=== PATIENT | male | born 1955 | race Caucasian/White ===

== ENCOUNTER → 2018-10-06 07:39 | Outpatient (CLI) | payer MEDICARE, MEDICAID | END | disposition home or self-care (01) | LOC: D.RAD 07:39 | DX: R13.10 Dysphagia, unspecified (principal) ==

== ENCOUNTER → 2018-11-15 17:04 | Outpatient (CLI) | payer MEDICARE, MEDICAID | END | disposition home or self-care (01) | LOC: D.LABREF 17:04 | DX: M19.012 Primary osteoarthritis, left shoulder (principal); Z11.8 Encounter for screening for other infectious and parasitic diseases ==

== ENCOUNTER 2018-11-28 17:02 | Inpatient (IN) | payer MEDICARE ==
[~2018-11-28] VITALS: Ht 180.3 cm; Wt 84.4 kg
[2018-12-08] MEDS ORDERED: AMITRIPTYLINE H50 MG PO (12:45)
[2018-12-08] MEDS ORDERED: NORVASC10 MG PO (12:46)
[2018-12-08] MEDS ORDERED: LIPITOR40 MG PO (12:47)
[2018-12-08] MEDS ORDERED: TENORMIN25 MG PO (12:47)
[2018-12-08] MEDS ORDERED: PLAVIX75 MG PO (12:48)
[2018-12-08] MEDS ORDERED: CELEXA40 MG PO (12:48)
[2018-12-08] MEDS ORDERED: ZYBAN150 MG PO (12:48)
[2018-12-08] MEDS ORDERED: CYCLOBENZAPRINE5 MG PO (12:49)
[2018-12-08] MEDS ORDERED: FENOFIBRATE160 MG PO (12:49)
[2018-12-08] MEDS ORDERED: HYDROCODON-ACE1 EA10 PO (12:50)
[2018-12-08] MEDS ORDERED: DURAGESIC1 PATCH .1 TRANSDERM (12:50)
[2018-12-08] MEDS ORDERED: GLIMEPIRIDE4 MG PO (12:50)
[2018-12-08] MEDS ORDERED: ISOSORBIDE DINI30 MG PO (12:51)
[2018-12-08] MEDS ORDERED: LISINOPRIL40 MG PO (12:52)
[2018-12-08] MEDS ORDERED: LEVEMIR FL100 UNIT/1 SC (12:52)
[2018-12-08] MEDS ORDERED: GLUCOPHAGE1000 MG PO (12:52)
[2018-12-08] MEDS ORDERED: LYRICA75 MG PO (12:52)
[2018-12-08] MEDS ORDERED: NOVOLOG100 UNIT/1 SC (12:53)
[2018-12-08] MEDS ORDERED: NITROQUICK0.4 MG SL (12:53)
[2018-12-08] MEDS ORDERED: OXYCONTIN10 MG PO (12:54)
[2018-12-08] MEDS ORDERED: RANEXA1000 MG PO (12:54)
[2018-12-08] MEDS ORDERED: BACTRIM 400-801 TAB PO (12:55)
[2018-12-08] MEDS ORDERED: VENTOLIN IH (12:57)
[2018-12-08] MEDS ORDERED: VICTOZA0.6 MG/0.1 SQ (12:57)
[2018-12-08] MEDS ORDERED: XARELTO20 MG PO (12:57)
[2018-12-08 14:20] LABS: BASOPHILS 0.3 % (0-2); EOSINOPHILS 2.7 % (0-7); HEMATOCRIT 40.9 % (42.0-54.0); HEMOGLOBIN 14.2 g/dL (13.5-17.5); IMMATURE GRANULOCYTES 0.5 % (0-5); LYMPHOCYTES 32.1 % (15-50); MCH 32.1 pg (26.0-34.0); MCHC 34.7 g/dL (31.0-37.0); MCV 92.5 fL (80.0-100.0); MEAN PLATELET VOLUME 10.3 fL (7.4-10.4); MONOCYTES 6.9 % (2-11); NEUTROPHILS 57.5 % (40-80); PLATELET COUNT 241 10x3/uL (130-400); RBC 4.42 10x6/uL (4.20-6.10); RDW 13.6 % (11.5-14.5); WBC 11.6 10x3/uL (4.8-10.8)
[2018-12-08 14:37] LABS: ANION GAP 14.1 mmol/L (8-16); CARBON DIOXIDE 25.7 mmol/L (21.0-32.0); CREATININE - SERUM 1.2 mg/dL (0.6-1.3); POTASSIUM - SERUM 4.8 mmol/L (3.5-5.1)
[2018-12-08 14:38] LABS: INR 1.26 (0.85-1.17); PROTIME 15.3 SECONDS (11.6-15.0)
[2018-12-08 14:39] LABS: APTT 33.6 SECONDS (22.8-39.4)
[2018-12-08 15:21] LABS: APPEARANCE CLEAR (CLEAR); BILIRUBIN NEGATIVE (NEGATIVE); COLOR YELLOW (YELLOW); GLUCOSE 250 mg/dL (NEGATIVE); KETONE NEGATIVE (NEGATIVE); NITRITE NEGATIVE (NEGATIVE); PROTEIN TRACE mg/dL (NEGATIVE); UROBILINOGEN NORMAL (NORMAL)
[2018-12-08 15:22] LABS: AMORPHOUS SEDIMENT <1+ /lpf (NONE SEEN); EPITHELIAL CELLS 0-5 /hpf (0-5); RED CELLS - URINE 0-5 /hpf (0-5); WHITE CELLS - URINE 0-5 /hpf (0-5)
[2018-12-12 11:12] VITALS: BP 126/80; BMI 26.0
[2018-12-12 16:29] VITALS: BP 98/51
[2018-12-12 16:44] VITALS: BP 98/51; BMI 26.0
--- NOTE | 2018-12-12 16:57 | NUR ---
PT RECIEVED FROM PACU PER STRETCHER. DRESSING NOTED TO RIGHT SHOULDER CLEAN DRY AND INTACT WITH SLING IN PLACE. STATES RIGHT SHOULDER IS NUMB. IV IN LEFT HAND AND IS POSITIONAL. SCDS ON IN PLACE. CALL LIGHT IN REACH
[2018-12-12 17:00] VITALS: BP 107/54
--- NOTE | 2018-12-12 17:30 | NUR ---
PATIENT ASKED ABOUT HOME INSULIN. NOTIFIED AND NEW ORDERS RECEIVED.
--- NOTE | 2018-12-12 19:29 | NUR ---
ATE ALL OF SUPPER. NO CHANGES NOTED. DENIES NEEDS. NO C/O PAIN AT THIS TIME.
--- NOTE | 2018-12-12 20:15 | NUR ---
AWAKE,ALERT.WATCHING TV QUIELTY. NO COMPLAITNS.DRSG TO RIGHT SHOULDER CLEAN/DRY/INTACT. SLING IN PLACE TO RIGHT ARM. IV INFUSING TO LEFT WRIST INTACT WITHOUT REDNESS OR EDEMA NOTED. CL IN REACH
[2018-12-12 21:24] VITALS: BP 105/51
--- NOTE | 2018-12-13 01:36 | NUR ---
EYES CLOSED RESPIRATIONS WITH EASE AND UNLABORED. DRESSING TO RT SHOULDER C/D/I SLING IN PLACE,
[2018-12-13 01:38] VITALS: BP 85/41
[2018-12-13 05:03] VITALS: BP 106/40
[2018-12-13 06:47] LABS: HEMATOCRIT 32.9 % (42.0-54.0); MCH 31.4 pg (26.0-34.0); MCHC 33.4 g/dL (31.0-37.0); MEAN PLATELET VOLUME 10.3 fL (7.4-10.4); RBC 3.5 10x6/uL (4.20-6.10); RDW 13.8 % (11.5-14.5); WBC 9.5 10x3/uL (4.8-10.8)
--- NOTE | 2018-12-13 07:58 | NUR ---
PT AAOX4 RESP EVEN AND NONLABORED, NO SIGNS OF DISTRESS NOTED, PT REQUESTING SOMETHING FOR PAIN, I EXPRESSED TO PT "THAT HE HAD SOMETHING AT 0433 AND AT 0633, AND THAT HE COULD NOT HAVE ANYTHING ELSE UNTIL AT LEAST 0833" PT WAS NOT HAPPY, CL IN REACH
[2018-12-13 08:51] VITALS: BP 168/62
[2018-12-13 10:28] VITALS: Ht 180.3 cm; Wt 84.4 kg
[2018-12-13 13:39] VITALS: BP 133/41
[2018-12-13 15:45] VITALS: BP 136/50
--- NOTE | 2018-12-13 18:29 | NUR ---
DENTAL MOLD MAKER COMPLETE. NO SIGNS OF DISTRESS. DENIES NEEDS AT THIS TIME. CL IN REACH
[2018-12-13 21:02] VITALS: BP 141/52
[2018-12-14 04:49] LABS: HEMATOCRIT 33.2 % (42.0-54.0); HEMOGLOBIN 11.3 g/dL (13.5-17.5); MCH 31.7 pg (26.0-34.0); MEAN PLATELET VOLUME 10.3 fL (7.4-10.4); RBC 3.57 10x6/uL (4.20-6.10); RDW 13.7 % (11.5-14.5)
--- NOTE | 2018-12-14 05:00 | NUR ---
EYES CLOSED RESPIRATIONS WITH EASE AND UNLABORED.
[2018-12-14 06:05] VITALS: BP 168/72
[2018-12-14 08:17] VITALS: BP 133/67
--- NOTE | 2018-12-14 08:31 | NUR ---
PT ALERT X 4. BREATH SOUNDS CLEAR BILAT. IV TO LEFT FOREARM DC'D, TIP INTACT. PT REPORTING PAIN OF 10/10, MEDICATED PER ORDERS, WILL MONITOR. SCD'S ON. BREAKFAST IN ROOM. BED LOW, CALL LIT IN REACH. NO OTHER NEEDS AT THIS TIME.
[2018-12-14] MEDS ORDERED: OXYCONTIN10 MG PO (08:48)
[2018-12-14] MEDS ORDERED: DILAUDID4 MG PO (08:50)
--- NOTE | 2018-12-14 11:02 | MORECARE ---
CASE MANAGEMENT DISCHARGE SUMMARY PATIENT: YAJAIRA RAHMAN UNIT: [id number] ADM DATE: 12/12/18 AGE: 63 : 54 SEX: M ROOM/BED: D.2203 AUTHOR: EMPERATRIZ GIORDANO PHYSICIAN: REFERRING PHYSICIAN: CLEMENCIA HERRING MD DATE OF SERVICE: 12/14/18 Discharge Plan Patient Name: YAJAIRA RAHMAN Facility: [facility]:[place] : 1955 Planned Disposition: Home Health Service Anticipated Discharge Date: Discharge Date: Expected LOS: Initial Reviewer: [email or web address] Initial Review Date: 12/12/2018 Generated: 12/14/18 12:02 pm DCPIA - Discharge Planning Initial Assessment Updated by [email or web address]: Jolene Smallwood on 12/14/18 10:57 am * Is the patient Alert and Oriented? Yes * How many steps to enter\exit or inside your home? RAMP * PCP [facility] * [facility] * Preadmission Environment Home Alone * ADLs Independent * Equipment Other Power Chair or Electric Scooter Shower Chair * Other Equipment TRANSFER CHAIR * List name and contact numbers for known caregivers / representatives who currently or will assist patient after discharge: BEBE BARRON (SISTER) [phone] * Verbal permission to speak to the caregivers and representatives has been obtained from the patient. N/A * Community resources currently utilized None * Additional services required to return to the preadmission environment? Yes * Can the patient safely return to the preadmission environment? No * Has this patient been hospitalized within the prior 30 days at any hospital? No External Providers External Provider: [facility] Next Contact Date: Service Request Date: Service Type: Resolution: Reviewer: Comments: Patient Name: YAJAIRA RAHMAN Page 13382 at 1102 All edits/amendments must be made on the electronic document DICTATION DATE: 12/14/18 1101 MACHINE SCALLOP CUTTER: ANANYA 12/14/18 1101 RPT#: [id number] DC DATE: STATUS: ADM IN [facility] [address] [place] [address] END OF REPORT
--- NOTE | 2018-12-14 11:09 | MORECARE ---
CASE MANAGEMENT DISCHARGE SUMMARY PATIENT: YAJAIRA RAHMAN UNIT: [id number] ADM DATE: 12/12/18 AGE: 63 : 54 SEX: M ROOM/BED: D.2203 AUTHOR: PASQUALE,DOC PHYSICIAN: REFERRING PHYSICIAN: CLEMENCIA HERRING MD DATE OF SERVICE: 12/14/18 Discharge Plan Patient Name: YAJAIRA RAHMAN Facility: [facility]:[place] : 1955 Planned Disposition: Home Health Service Anticipated Discharge Date: Discharge Date: Expected LOS: Initial Reviewer: [email or web address] Initial Review Date: 12/12/2018 Generated: 12/14/18 12:09 pm Comments DCP- Discharge Planning Updated by [email or web address]: Jolene Smallwood on 12/14/18 10:[address] Patient Name: YAJAIRA RAHMAN Admission Status: Elective Accout number: [id number] Admission Date: 12-12-2018 : 1955 Admission Diagnosis: Attending: CLEMENCIA HERRING Current LOS: 2 Anticipated DC Date: Planned Disposition: Home Health Service Primary Insurance: MEDICARE A & B Discharge Planning Comments: CM met with patient to complete initial dc planning assessment. CM educated patient on the CM role and verbal consent given by patient to complete assessment. Patient lives alone is [place] and states that he is independent with his care. At discharge patient plans to return home and feels this is a safe discharge. I questioned his safety at home by himself and he said that he does not care he is not staying here. I asked him how he gets around [facility], he stated that he calls [employer] bus but needs 5 days in advance notice. He has an electric wheelchair, shower chair and transfer board at home. CM discussed availability of home health, rehab services, and medical equipment. I questioned him about skilled and in patient rehab and he refuses to go to either. He stated that he has had [place] choices in the past, but moved out of [facility] and when he moved back he can not seem to be approved again. I gave information about [facility] and he would like to speak with them, I called and faxed a facesheet to [facility] and they will follow up with him at home. I spoke with Ramez. I explained to him about home health and CLAUDIA with [facility]. I will send a referral to them. I asked him to see if he had food in his home, he stated that he has stuff he can microwave. I again voiced my concerns about him going home alone and he stated that he was not staying here or going to a prison, and he was going home. CM will continue to follow and will assist as needed with dc plans/needs. Asbestos Removal Worker: Jolene Smallwood DCPIA - Discharge Planning Initial Assessment Updated by [email or web address]: Jolene Smallwood on 12/14/18 10:57 am * Is the patient Alert and Oriented? Yes * How many steps to enter\exit or inside your home? RAMP * PCP [facility] * [facility] * Preadmission Environment Home Alone * ADLs Independent * Equipment Other Power Chair or Electric Scooter Shower Chair * Other Equipment TRANSFER CHAIR * List name and contact numbers for known caregivers / representatives who currently or will assist patient after discharge: BEBE BARRON (SISTER) [phone] * Verbal permission to speak to the caregivers and representatives has been obtained from the patient. N/A * Community resources currently utilized None * Additional services required to return to the preadmission environment? Yes * Can the patient safely return to the preadmission environment? No * Has this patient been hospitalized within the prior 30 days at any hospital? No Last DP export: 12/14/18 10:02 a Patient Name: YAJAIRA RAHMAN Page [id number] at 1109 All edits/amendments must be made on the electronic document DICTATION DATE: 12/14/181107 CORPORATE PLANNING MANAGER: ANANYA 12/14/181107 RPT#: [id number] DC DATE: STATUS: ADM IN [facility] [address] [place] [address] END OF REPORT
--- NOTE | 2018-12-14 11:17 | MORECARE ---
CASE MANAGEMENT DISCHARGE SUMMARY PATIENT: YAJAIRA RAHMAN UNIT: [id number] ADM DATE: 12/12/18 AGE: 63 : 54 SEX: M ROOM/BED: D.2203 AUTHOR: PASQUALE,DOC PHYSICIAN: REFERRING PHYSICIAN: CLEMENCIA HERRING MD DATE OF SERVICE: 12/14/18 Discharge Plan Patient Name: YAJAIRA RAHMAN Facility: [facility]:[place] : 1955 Planned Disposition: Home Health Service Anticipated Discharge Date: Discharge Date: Expected LOS: Initial Reviewer: [email or web address] Initial Review Date: 12/12/2018 Generated: 12/14/18 12:16 pm Comments DCP- Discharge Planning Updated by [email or web address]: Jolene Smallwood on 12/14/18 10:[address] Patient Name: YAJAIRA RAHMAN Admission Status: Elective Accout number: [id number] Admission Date: 12-12-2018 : 1955 Admission Diagnosis: Attending: CLEMENCIA HERRING Current LOS: 2 Anticipated DC Date: Planned Disposition: Home Health Service Primary Insurance: MEDICARE A & B Discharge Planning Comments: CM met with patient to complete initial dc planning assessment. CM educated patient on the CM role and verbal consent given by patient to complete assessment. Patient lives alone is [place] and states that he is independent with his care. At discharge patient plans to return home and feels this is a safe discharge. I questioned his safety at home by himself and he said that he does not care he is not staying here. I asked him how he gets around [facility], he stated that he calls [employer] bus but needs 5 days in advance notice. He has an electric wheelchair, shower chair and transfer board at home. CM discussed availability of home health, rehab services, and medical equipment. I questioned him about skilled and in patient rehab and he refuses to go to either. He stated that he has had [place] choices in the past, but [facility] and when he moved back he can not seem to be approved again. I gave information about [facility] and he would like to speak with them, I called and faxed a facesheet to [facility] and they will follow up with him at home. I spoke with Ramez. I explained to him about home health and CLAUDIA with [facility]. I will send a referral to them. I asked him to see if he had food in his home, he stated that he has stuff he can microwave. I again voiced my concerns about him going home alone and he stated that he was not staying here or going to a [place] [facility], and he was going home. CM will continue to follow and will assist as needed with dc plans/needs. Hotel Assistant General Manager: Jolene Smallwood DCPIA - Discharge Planning Initial Assessment Updated by [email or web address]: Jolene Smallwood on 12/14/18 10:57 am * Is the patient Alert and Oriented? Yes * How many steps to enter\exit or inside your home? RAMP * PCP [facility] * [facility] * Preadmission Environment Home Alone * ADLs Independent * Equipment Other Power Chair or Electric Scooter Shower Chair * Other Equipment TRANSFER CHAIR * List name and contact numbers for known caregivers / representatives who currently or will assist patient after discharge: BEBE BARRON (SISTER) [phone] * Verbal permission to speak to the caregivers and representatives has been obtained from the patient. N/A * Community resources currently utilized None * Additional services required to return to the preadmission environment? Yes * Can the patient safely return to the preadmission environment? No * Has this patient been hospitalized within the prior 30 days at any hospital? No External Providers External Provider: [facility] Next Contact Date: Service Request Date: Service Type: Resolution: Reviewer: Comments: Last DP export: 12/14/18 10:09 a Patient Name: YAJAIRA RAHMAN Page [phone] at 1117 All edits/amendments must be made on the electronic document DICTATION DATE: 12/14/18 1116 MELT HOUSE CENTRIFUGAL OPERATOR: ANANYA 12/14/18 1116 RPT#: [id number] DC DATE: STATUS: ADM IN [facility] [address] [place] [address] END OF REPORT
--- NOTE | 2018-12-14 11:23 | MORECARE ---
CASE MANAGEMENT DISCHARGE SUMMARY PATIENT: YAJAIRA RAHMAN UNIT: [id number] ADM DATE: 12/12/18 AGE: 63 : 53 SEX: M ROOM/BED: D.2203 AUTHOR: EMPERATRIZ GIORDANO PHYSICIAN: REFERRING PHYSICIAN: CLEMENCIA HERRING MD DATE OF SERVICE: 12/14/18 Discharge Plan Patient Name: YAJAIRA RAHMAN Facility: [facility]:[place] : 1955 Planned Disposition: Home Health Service Anticipated Discharge Date: Discharge Date: Expected LOS: Initial Reviewer: [email or web address] Initial Review Date: 12/12/2018 Generated: 12/14/18 12:23 pm Comments DCP- Discharge Planning Updated by [email or web address]: Jolene Smallwood on 12/14/18 10:[address] called and left message with clemencia at [employer] to set up transportation DCP- Discharge Planning Updated by [email or web address]: Jolene Smallwood on 12/14/18 10:[address] Patient Name: YAJAIRA RAHMAN Admission Status: Elective Accout number: [id number] Admission Date: 12-12-2018 : 1955 Admission Diagnosis: Attending: CLEMENCIA HERRING Current LOS: 2 Anticipated DC Date: Planned Disposition: Home Health Service Primary Insurance: MEDICARE A & B Discharge Planning Comments: CM met with patient to complete initial dc planning assessment. CM educated patient on the CM role and verbal consent given by patient to complete assessment. Patient lives alone is [place] and states that he is independent with his care. At discharge patient plans to return home and feels this is a safe discharge. I questioned his safety at home by himself and he said that he does not care he is not staying here. I asked him how he gets around town, he stated that he calls [employer] bus but needs 5 days in advance notice. He has an electric wheelchair, shower chair and transfer board at home. CM discussed availability of home health, rehab services, and medical equipment. I questioned him about skilled and in patient rehab and he refuses to go to either. He stated that he has had [place] choices in the past, but moved out of [facility] and when he moved back he can not seem to be approved again. I gave information about [facility] and he would like to speak with them, I called and faxed a facesheet to [facility] and they will follow up with him at home. I spoke with Ramez. I explained to him about home health and CLAUDIA with [facility]. I will send a referral to them. I asked him to see if he had food in his home, he stated that he has stuff he can microwave. I again voiced my concerns about him going home alone and he stated that he was not staying here or going to a shelter, and he was going home. CM will continue to follow and will assist as needed with dc plans/needs. Palm And Back Forger: Jolene Smallwood DCPIA - Discharge Planning Initial Assessment Updated by [email or web address]: Jolene Smallwood on 12/14/18 10:57 am * Is the patient Alert and Oriented? Yes * How many steps to enter\exit or inside your home? RAMP * PCP [facility] * [facility] * Preadmission Environment Home Alone * ADLs Independent * Equipment Other Power Chair or Electric Scooter Shower Chair * Other Equipment TRANSFER CHAIR * List name and contact numbers for known caregivers / representatives who currently or will assist patient after discharge: BEBE BARRON (SISTER) [phone] * Verbal permission to speak to the caregivers and representatives has been obtained from the patient. N/A * Community resources currently utilized None * Additional services required to return to the preadmission environment? Yes * Can the patient safely return to the preadmission environment? No * Has this patient been hospitalized within the prior 30 days at any hospital? No Last DP export: 12/14/18 10:17 a Patient Name: YAJAIRA RAHMAN Page 21329 at 1123 All edits/amendments must be made on the electronic document DICTATION DATE: 12/14/181122 GLASS BULB MACHINE ADJUSTER: ANANYA 12/14/181122 RPT#: [id number] DC DATE: STATUS: ADM IN [facility] [address] [place] [address] END OF REPORT
[2018-12-14 12:39] VITALS: BP 125/55
--- NOTE | 2018-12-14 15:07 | MORECARE ---
CASE MANAGEMENT DISCHARGE SUMMARY PATIENT: YAJAIRA RAHMAN UNIT: [id number] ADM DATE: 12/12/18 AGE: 63 : 53 SEX: M ROOM/BED: D.2203 AUTHOR: PASQUALE,DOC PHYSICIAN: REFERRING PHYSICIAN: ISADORA HERRING MD DATE OF SERVICE: 12/14/18 Discharge Plan Patient Name: YAJAIRA RAHMAN Facility: [facility]:[place] : 1955 Planned Disposition: Home Health Service Anticipated Discharge Date: Discharge Date: Expected LOS: Initial Reviewer: [email or web address] Initial Review Date: 12/12/2018 Generated: 12/14/18 4:07 pm Comments DCP- Discharge Planning Updated by [email or web address]: Jolene Smallwood on 12/14/18 2:[address] Isadora WITH [email or web address] WILL BE TRANSPORTING PATIENT HOME, [facility] WILL BE PAYING FOR THE TRANSPORT SPOKE WITH [employer] AND $35.00 WAS GIVEN TO ME TO PAY FOR TRANSPORTATION DCP- Discharge Planning Updated by [email or web address]: Jolene Smallwood on 12/14/18 10:[address] called and left message with isadora at [employer] to set up transportation DCP- Discharge Planning Updated by [email or web address]: Jolene Smallwood on 12/14/18 10:[address] Patient Name: YAJAIRA RAHMAN Admission Status: Elective Accout number: [id number] Admission Date: 12-12-2018 : 1955 Admission Diagnosis: Attending: ISADORA HERRING Current LOS: 2 Anticipated DC Date: Planned Disposition: Home Health Service Primary Insurance: MEDICARE A & B Discharge Planning Comments: CM met with patient to complete initial dc planning assessment. CM educated patient on the CM role and verbal consent given by patient to complete assessment. Patient lives alone is [place] and states that he is independent with his care. At discharge patient plans to return home and feels this is a safe discharge. I questioned his safety at home by himself and he said that he does not care he is not staying here. I asked him how he gets around town, he stated that he calls [employer] bus but needs 5 days in advance notice. He has an electric wheelchair, shower chair and transfer board at home. CM discussed availability of home health, rehab services, and medical equipment. I questioned him about skilled and in patient rehab and he refuses to go to either. He stated that he has had [place] choices in the past, but moved out of [facility] and when he moved back he can not seem to be approved again. I gave information about [facility] and he would like to speak with them, I called and faxed a facesheet to [facility] and they will follow up with him at home. I spoke with Ramez. I explained to him about home health and CLAUDIA with [facility]. I will send a referral to them. I asked him to see if he had food in his home, he stated that he has stuff he can microwave. I again voiced my concerns about him going home alone and he stated that he was not staying here or going to a [facility], and he was going home. CM will continue to follow and will assist as needed with dc plans/needs. Radiation Oncology Nurse: Jolene Smallwood DCPIA - Discharge Planning Initial Assessment Updated by [email or web address]: Jolene Smallwood on 12/14/18 10:57 am * Is the patient Alert and Oriented? Yes * How many steps to enter\exit or inside your home? RAMP * PCP [facility] * [facility] * Preadmission Environment Home Alone * ADLs Independent * Equipment Other Power Chair or Electric Scooter Shower Chair * Other Equipment TRANSFER CHAIR * List name and contact numbers for known caregivers / representatives who currently or will assist patient after discharge: BEBE BARRON (SISTER) [phone] * Verbal permission to speak to the caregivers and representatives has been obtained from the patient. N/A * Community resources currently utilized None * Additional services required to return to the preadmission environment? Yes * Can the patient safely return to the preadmission environment? No * Has this patient been hospitalized within the prior 30 days at any hospital? No Last DP export: 12/14/18 10:23 a Patient Name: YAJAIRA RAHMAN Page [id number] at 1502 All edits/amendments must be made on the electronic document DICTATION DATE: 12/14/181505 GREENHOUSE TECHNICIAN: ANANYA 12/14/181505 RPT#: [id number] DC DATE: STATUS: ADM IN [facility] [address] [place] [address] END OF REPORT
--- NOTE | 2018-12-14 15:32 | NUR ---
DISCHARGE PAPERWORK SIGNED, ALL QUESTIONS ANSWERED. PHYSICAL THERAPY ASSISTED WITH TRANSFER TO PERSONAL WHEELCHAIR. ESCORTED OUT BY [employer].
--- NOTE | 2018-12-14 17:18 | MORECARE ---
CASE MANAGEMENT DISCHARGE SUMMARY PATIENT: YAJAIRA RAHMAN UNIT: [id number] ADM DATE: 12/12/18 AGE: 63 : 53 SEX: M ROOM/BED: D.2203 AUTHOR: PASQUALE,DOC PHYSICIAN: REFERRING PHYSICIAN: ISADORA HERRING MD DATE OF SERVICE: 12/14/18 Discharge Plan Patient Name: YAJAIRA RAHMAN Facility: [facility]:[place] : 1955 Planned Disposition: Home Health Service Anticipated Discharge Date: Discharge Date: 12/14/2018 Expected LOS: 0 Initial Reviewer: [email or web address] Initial Review Date: 12/12/2018 Generated: 12/14/18 6:18 pm Comments DCP- Discharge Planning Updated by [email or web address]: Jolene Smallwood on 12/14/18 2:[address] Isadora WITH [employer] WILL BE TRANSPORTING PATIENT HOME, [facility] WILL BE PAYING FOR THE TRANSPORT SPOKE WITH [employer] AND $35.00 WAS GIVEN TO ME TO PAY FOR TRANSPORTATION DCP- Discharge Planning Updated by [email or web address]: Jolene Smallwood on 12/14/18 10:[address] called and left message with isadora at [email or web address] to set up transportation DCP- Discharge Planning Updated by [email or web address]: Jolene Smallwood on 12/14/18 10:[address] Patient Name: YAJAIRA RAHMAN Admission Status: Elective Accout number: [id number] Admission Date: 12-12-2018 : 1955 Admission Diagnosis: Attending: ISADORA HERRING Current LOS: 2 Anticipated DC Date: Planned Disposition: Home Health Service Primary Insurance: MEDICARE A & B Discharge Planning Comments: CM met with patient to complete initial dc planning assessment. CM educated patient on the CM role and verbal consent given by patient to complete assessment. Patient lives alone is [place] and states that he is independent with his care. At discharge patient plans to return home and feels this is a safe discharge. I questioned his safety at home by himself and he said that he does not care he is not staying here. I asked him how he gets around town, he stated that he calls [employer] but needs 5 days in advance notice. He has an electric wheelchair, shower chair and transfer board at home. CM discussed availability of home health, rehab services, and medical equipment. I questioned him about skilled and in patient rehab and he refuses to go to either. He stated that he has had [place] choices in the past, but moved out of [facility] and when he moved back he can not seem to be approved again. I gave information about [facility] and he would like to speak with them, I called and faxed a facesheet to [facility] and they will follow up with him at home. I spoke with R[facility]. I explained to him about home health and CLAUDIA with [facility]. I will send a referral to them. I asked him to see if he had food in his home, he stated that he has stuff he can microwave. I again voiced my concerns about him going home alone and he stated that he was not staying here or going to a [place] [facility] facility, and he was going home. CM will continue to follow and will assist as needed with dc plans/needs. [employer] Caser: Jolene Smallwood DCPIA - Discharge Planning Initial Assessment Updated by [email or web address]: Jolene Smallwood on 12/14/18 10:57 am * Is the patient Alert and Oriented? Yes * How many steps to enter\exit or inside your home? RAMP * PCP [facility] * Pharmacy [facility] * Preadmission Environment Home Alone * ADLs Independent * Equipment Other Power Chair or Electric Scooter Shower Chair * Other Equipment TRANSFER CHAIR * List name and contact numbers for known caregivers / representatives who currently or will assist patient after discharge: BEBE BARRON (SISTER) [phone] * Verbal permission to speak to the caregivers and representatives has been obtained from the patient. N/A * Community resources currently utilized None * Additional services required to return to the preadmission environment? Yes * Can the patient safely return to the preadmission environment? No * Has this patient been hospitalized within the prior 30 days at any hospital? No Last DP export: 12/14/18 2:07 p Patient Name: YAJAIRA RAHMAN Page [id number] at [id number] All edits/amendments must be made on the electronic document DICTATION DATE: 12/14/181717 BUILDING RENTAL SUPERINTENDENT: ANANYA 12/14/181717 RPT#: [id number] DC DATE:12/14/18 STATUS: DIS IN [facility] [address] [place] [address] END OF REPORT
--- NOTE | 2018-12-15 11:47 | OP ---
PATIENT NAME: YAJAIRA RAHMAN MEDICAL RECORD: [id number] :53 LOCATION:D.MS [id number] ADMISSION DATE:12/12/18 SURGEON: CLEMENCIA HERRING MD DATE OF OPERATION: 12/12/2018 PREOPERATIVE DIAGNOSIS: Painful hemiarthroplasty with chronic rotator cuff tear arthropathy of the right shoulder. POSTOPERATIVE DIAGNOSIS: Painful hemiarthroplasty with chronic rotator cuff tear arthropathy of the right shoulder. PROCEDURE: Revision of hemiarthroplasty to reverse total shoulder arthroplasty. SURGEON: Clemencia Herring MD BULB PACKER: Kenny ANESTHESIA: General. INTRAOPERATIVE COMPLICATIONS: None. SUMMARY OF PATHOLOGIC FINDINGS: The patient unfortunately had a very well fixed trabecular metal Micheal hemiarthroplasty with anterior escape as well as chronic rotator cuff arthropathy and erosion of the undersurface of the acromion. The stem required extended corticotomy for removal and that was cabled nicely, and revision from hemiarthroplasty to reverse total shoulder was without significant difficulty. IMPLANTS USED: Arthrex Univers system with size 8 stem, 135 x 36 metaphyseal component, 36 inferior two offset glenosphere, and a 24 mm +2 lateralized baseplate. Please note there were also three 1.7 Dall-Miles cables used to close down the extended humeral corticotomy. OPERATIVE SUMMARY IN DETAIL: After obtaining the appropriate preoperative orthopedic surgery consent as well as anesthetic consultation, evaluation, and clearance, the patient was brought to the operating room and placed on the operating table in the supine position. After adequate general laryngeal mask airway was administered, the patient was placed in the beachchair position. All pressure points were well padded. He was held firmly to the operating table using the vacuum pack suction system. Right upper extremity and shoulder were then prepped and draped in routine sterile fashion. Arm was held in the Arthrex Trimano device. Deltopectoral incision was taken gently down to the deltopectoral interval. Cephalic vein was not identified as it was likely disrupted from previous operation. Clavipectoral fascia was identified and portions of adhesed deltoid were taken down off the capsule. Noted was the rotator cuff arthropathy of the supraspinatus tendon tearing. Subscapularis was taken down, and after gentle dissection, the hemiarthroplasty was dissected forth. Very little degree of difficulty was required to take the humeral head off the Partida taper. However, at this point, serial and sequential flexible osteotome manipulation about the trunnion was utilized. When it was felt that there was little hope of getting this out without corticotomy, gentle corticotomy was performed for approximately 10 cm. It required only approximately 3-4 mm opening to further loosen the stem and remove it without substantial bone loss. Three Dall-Miles cables were then placed and tensioned with a temporary tension holding device while a reverse total shoulder was OPERATIVE REPORT [id number] YAJAIRA RAHMAN undertaken. Serial and sequential reaming were done for a size 8 press fit stem from the Univers system. Having completed this, the 8 trial was left in place with the humeral cut protector. The glenoid was exposed in its entirety. Circumferential labrectomy was then followed by placing the central pin. The appropriate reaming was done for a size 36. The 36 with a 25-mm screw was tapped and prepared for. This baseplate was then seated nicely with 4 peripheral screws with good fixation. The 36 glenosphere was then tamped into place on the Partida taper with the central screw then placed for good fixation. Attention was then returned to the proximal humerus. A size #8 stem with 36 metaphyseal component set at 135 was assembled on the back field and put into place with excellent position. Having completed this, further tensioning of the Dall-Miles cables was followed by crimping and cutting the wires. The shoulder was taken through reduction. It was felt that the 3 poly was most appropriate. This was stamped into place, reduced, taken through range of motion, and found to be stable in all planes without liftoff. Wound was copiously irrigated and then the deltopectoral interval was closed with #1 Vicryl followed by 2-0 Vicryl and skin ninoska. Sterile dressings were applied. The patient was awakened and taken to the recovery room in stable condition. All final needle and sponge counts were correct. TRANSINT:[id number] Voice Confirmation ID: [id number] DOCUMENT ID: [id number] NIMA FANG, CLEMENCIA YING at 1147 CC: [id number] DICTATION DATE: 12/12/18 1534 CLAM BED LABORER: 12/12/18 1842 DIS IN 12/14/18 [facility] [address] [place] [address]
== END 2018-12-14 15:33 | disposition home health service (06) | DRG 483 ==
LOC: D.SDCHOLD 12-12 10:20 → D.MS 12-12 10:20 → D.SDCHOLD 12-12 12:00 → D.MS 12-12 15:50
PROVIDERS: Anesthesiology; ADMIT Orthopaedic Surgery
PROC: 0RRJ00Z Replacement of Right Shoulder Joint with Reverse Ball and Socket Synthetic Substitute, Open Approach (ICD-10-PCS; principal; 2018-12-12 12:00)
DX: T84.84XA Pain due to internal orthopedic prosthetic devices, implants and grafts, initial encounter (principal); M75.101 Unspecified rotator cuff tear or rupture of right shoulder, not specified as traumatic; E11.9 Type 2 diabetes mellitus without complications; I11.0 Hypertensive heart disease with heart failure; I50.9 Heart failure, unspecified; I25.10 Atherosclerotic heart disease of native coronary artery without angina pectoris; E78.5 Hyperlipidemia, unspecified; J44.9 Chronic obstructive pulmonary disease, unspecified; Z86.73 Personal history of transient ischemic attack (TIA), and cerebral infarction without residual deficits

== ENCOUNTER → 2019-08-11 11:07 | Outpatient (CLI) | payer MEDICARE ==
[2018-12-13 10:28] VITALS: BMI 25.9
[~2019-08-11 11:07] MED LIST: AMITRIPTYLINE H50 MG PO; BACTRIM 400-801 TAB PO; CELEXA40 MG PO; CYCLOBENZAPRINE5 MG PO; DILAUDID4 MG PO; DURAGESIC1 PATCH .1 TRANSDERM; FENOFIBRATE160 MG PO; GLIMEPIRIDE4 MG PO; GLUCOPHAGE1000 MG PO; HYDROCODON-ACE1 EA10 PO; ISOSORBIDE DINI30 MG PO; LEVEMIR FL100 UNIT/1 SC; LIPITOR40 MG PO; LISINOPRIL40 MG PO; LYRICA75 MG PO; NITROQUICK0.4 MG SL; NORVASC10 MG PO; NOVOLOG100 UNIT/1 SC; OXYCONTIN10 MG PO; PLAVIX75 MG PO; RANEXA1000 MG PO; TENORMIN25 MG PO; VENTOLIN IH; VICTOZA0.6 MG/0.1 SQ; XARELTO20 MG PO; ZYBAN150 MG PO
== END | disposition home or self-care (01) ==
LOC: D.MRI 11:07
PROVIDERS: ATTEND Clinical Nurse Specialist Family Health
DX: M54.12 Radiculopathy, cervical region (principal)

== ENCOUNTER → 2019-12-14 11:22 | Outpatient (CLI) | payer MEDICARE ==
[2018-12-13 10:28] VITALS: BMI 25.9
[2019-12-14 11:42] LABS: BASOPHILS 0.2 % (0-2); HEMATOCRIT 29.1 % (42.0-54.0); HEMOGLOBIN 9.4 g/dL (13.5-17.5); IMMATURE GRANULOCYTES 0.6 % (0-5); LYMPHOCYTES 23.2 % (15-50); MCH 29.2 pg (26.0-34.0); MCHC 32.3 g/dL (31.0-37.0); MCV 90.4 fL (80.0-100.0); MEAN PLATELET VOLUME 10.2 fL (7.4-10.4); MONOCYTES 7.1 % (2-11); NEUTROPHILS 62.9 % (40-80); RBC 3.22 10x6/uL (4.20-6.10); RDW 15.5 % (11.5-14.5); WBC 6.5 10x3/uL (4.8-10.8)
[2019-12-14 11:43] LABS: PLATELET COUNT 270 10x3/uL (130-400)
== END | disposition home or self-care (01) ==
LOC: D.LABREF 11:22
PROVIDERS: ATTEND Family Medicine
DX: K92.1 Melena (principal)

== ENCOUNTER 2020-04-01 08:37 | Day surgery (SDC) | payer MEDICARE ==
[2020-03-28 15:22] LABS: HEMOGLOBIN 13.7 g/dL (13.5-17.5); MCH 29.8 pg (26.0-34.0); MCHC 33.4 g/dL (31.0-37.0); MCV 89.3 fL (80.0-100.0); RBC 4.59 10x6/uL (4.20-6.10); RDW 14.7 % (11.5-14.5); WBC 8.3 10x3/uL (4.8-10.8)
--- NOTE | 2020-03-28 15:31 | NUR ---
notified matt at dr rodriguez's office about pt being on both xarolto and plavix. cal stated she would call the scarrer and make sure the pt can be off his blood thinners. explained to cal that this nurse asked pt if dr rodriguez's office knew he was on blood thinners and pt stated he didn't know and no one told him to not take meds before surgery. explained that this nurse told pt he would need to be off them at least 3 days prior to surgery which would be Wednesday.
[2020-03-28 15:36] LABS: ANION GAP 12.4 mmol/L (8-16); CALCIUM 9.5 mg/dL (8.5-10.1); CARBON DIOXIDE 26.9 mmol/L (21.0-32.0); CREATININE - SERUM 1.3 mg/dL (0.6-1.3); POTASSIUM - SERUM 4.3 mmol/L (3.5-5.1)
[~2020-04-01] VITALS: Ht 180.3 cm; Wt 83.5 kg
[2020-04-01 09:09] VITALS: BP 145/71; Ht 180.3 cm; Wt 83.5 kg
[2020-04-01] MEDS ORDERED: HYDROCODON-ACE1 EA10 PO (12:50)
--- NOTE | 2020-04-01 14:50 | NUR ---
DISCHARGE PLANS DISCUSSED WITH PATIENT, PATIENT STATES HE WAS NOT ABLE TO TRANSFER SELF INTO MOTORIZED WHEELCHAIR PREOPERATIVELY. HE STAYS IN MOTORIZED WHEELCHAIR EXCEPT WHEN AN AIDE VISITS HIS HOME AND AIDE ASSISTS HIM WITH TRANSFERRING ONTO TOILET AND BATHING. PATIENT DOES NOT ANTICIPATE ANY DIFFICULTIES WITH CARING FOR SELF AT HOME EVEN WITH LIMITATIONS OF SHOULDER SURGERY
--- NOTE | 2020-04-06 11:34 | OP ---
PATIENT NAME: YAJAIRA RAHMAN MEDICAL RECORD: [id number] :53 LOCATION:[facility].OPS ADMISSION DATE: SURGEON: CLEMENCIA HERRING MD DATE OF OPERATION: 04/01/2020 PREOPERATIVE DIAGNOSES: Greater tuberosity impingement syndrome, status post reverse total shoulder arthroplasty. POSTOPERATIVE DIAGNOSES: Greater tuberosity impingement syndrome, status post reverse total shoulder arthroplasty. PROCEDURE: Excision of the greater tuberosity bony osteophyte open. SURGEON: Clemencia Herring MD WEATHER CLERK: ROSMERY Ellington INTRAOPERATIVE COMPLICATIONS: None. SUMMARY OF PATHOLOGIC FINDINGS: Consistent with preoperative diagnoses, examination under anesthesia showed impingement of the residual greater tuberosity to the acromion. As the large residual greater tuberosity osteophyte and portion of the greater tuberosity itself were removed, impingement was no longer prominent. OPERATIVE SUMMARY IN DETAIL: After obtaining the appropriate preoperative orthopedic surgery consent as well as anesthetic consultation, evaluation and clearance, the patient was brought to the operating room and placed on the operating table in a supine position. After adequate general laryngeal mask airway was administered, the patient was placed in the beach chair position. All pressure points were well padded. He was held firmly to the operating table using the vacuum pack suction system. Right upper extremity and shoulder were then prepped and draped in routine sterile fashion. The arm was held in Trimano arm holding device. Incision was made directly over the area of the greater tuberosity, taken down to the superficial deep deltoid fascia, which was retracted. The large osteophyte was then immediately identified, and this and portions of the greater tuberosity were excised. The patient's rotator cuff was paucity at best. However, what was residual was remained for reapproximation. Having completed the excision of the osteophyte, the shoulder had a clear range of motion with full abduction as well as forward flexion. The wound was then copiously irrigated. The rotator cuff as it was reapproximated and then reapproximated transosseously with #2 Ethibond. The wound was then closed by ROSMERY Alba using #1 Vicryl, 2-0 Vicryl and skin ninoska. Sterile dressings were applied. The patient was awakened and taken to the recovery room in stable condition. All final needle and sponge counts were correct. TRANSINT:[id number] Voice Confirmation ID: [id number] DOCUMENT ID: [id number] OPERATIVE REPORT [id number] YAJAIRA RAHMAN MD, CLEMENCIA YING at 1134 CC: [id number] DICTATION DATE: 04/05/20 1330 TEACHER ADULT EDUCATION: 04/05/20 1532 [facility] 04/01/20 [place] [id number] [place] [id number]
== END 2020-04-01 15:20 | disposition home or self-care (01) ==
LOC: D.OPS 08:37 → D.PAN 11:15 → D.OPS 15:20
PROVIDERS: Anesthesiology; ATTEND Orthopaedic Surgery
DX: M75.41 Impingement syndrome of right shoulder (principal); E11.9 Type 2 diabetes mellitus without complications; Z79.84 Long term (current) use of oral hypoglycemic drugs; J44.9 Chronic obstructive pulmonary disease, unspecified; I25.2 Old myocardial infarction; Z79.01 Long term (current) use of anticoagulants; M77.9 Enthesopathy, unspecified; M25.712 Osteophyte, left shoulder